=== PATIENT | female | born 1975 ===

== ENCOUNTER 2019-09-10 10:15 | Inpatient (IN) | payer OTHER ==
[~2019-09-10] VITALS: Ht 162.6 cm; Wt 68.0 kg
[2019-09-10] MEDS ORDERED: INTEGRA PLUS C1 EACH PO (11:33)
[2019-09-10] MEDS ORDERED: COZAAR100 MG PO (11:34)
[2019-09-10] MEDS ORDERED: CARVEDILOL ER40 MG PO (11:34)
[2019-09-10] MEDS ORDERED: BIONECT TOP (11:35)
[2019-09-10] MEDS ORDERED: SYNTHROID175 MCG PO (12:17)
[2019-09-10] MEDS ORDERED: MICROZIDE12.5 MG PO (12:18)
== END 2019-09-16 18:34 | disposition home or self-care (01) | DRG 735 ==
LOC: O/R 10:15 → OB/GYN 09-15 05:00 → SURH 09-15 07:00 → OB/GYN 09-15 10:45
PROVIDERS: ADMIT Obstetrics & Gynecology Gynecologic Oncology
PROC: 0UT94ZZ Resection of Uterus, Percutaneous Endoscopic Approach (ICD-10-PCS; 2019-09-15)
PROC: 0UT64ZZ Resection of Left Fallopian Tube, Percutaneous Endoscopic Approach (ICD-10-PCS; 2019-09-15)
PROC: 0UT14ZZ Resection of Left Ovary, Percutaneous Endoscopic Approach (ICD-10-PCS; 2019-09-15)
PROC: 0DTU4ZZ Resection of Omentum, Percutaneous Endoscopic Approach (ICD-10-PCS; 2019-09-15)
PROC: 07TC4ZZ Resection of Pelvis Lymphatic, Percutaneous Endoscopic Approach (ICD-10-PCS; principal; 2019-09-15 07:00)
DX: C56.2 Malignant neoplasm of left ovary (principal)